=== PATIENT | female | born 1985 | race Hispanic/Latino ===

== ENCOUNTER 2022-08-17 16:37 | Emergency (ER) | payer OTHER ==
[~2022-08-17] VITALS: Ht 154.9 cm; Wt 79.7 kg
[2022-08-17 16:38] VITALS: BP 155/84
[2022-08-17] MEDS ORDERED: LISI10TA22 PO (16:50)
[2022-08-17 19:17] LABS: HEMATOCRIT 43.5 % (36.0-47.0); HEMOGLOBIN 14.7 g/dl (12.0-15.5); MEAN CORPUSCULAR HEMOGLOBIN 30.6 pg (27.0-33.0); MEAN CORPUSCULAR HGB CONC 33.8 g/dl (32.0-36.5); MEAN CORPUSCULAR VOLUME 90.4 fl (80.0-96.0); PLATELET COUNT, AUTOMATED 220 10^3/uL (150-450); RED BLOOD COUNT 4.81 10^6/uL (4.00-5.40); WHITE BLOOD COUNT 7.3 10^3/uL (4.0-10.0)
[2022-08-17 19:31] LABS: ERYTHROCYTE SEDIMENTATION RATE 23 mm/hr (0-20)
[2022-08-17] MEDS ORDERED: ISOVUE-370 76% 100ML VIAL As Ordered ONE (19:44)
[2022-08-17 19:47] LABS: BLOOD UREA NITROGEN 10 MG/DL (9-23); CALCIUM LEVEL 9.1 MG/DL (8.5-10.1); CARBON DIOXIDE LEVEL 25 MMOL/L (20-31); CHLORIDE LEVEL 106 MMOL/L (98-107); GLOMERULAR FILTRATION RATE > 60.0 (>60); GLUCOSE, FASTING 88 MG/DL (60-100); POTASSIUM SERUM 4.1 MMOL/L (3.5-5.1); SODIUM LEVEL 140 MMOL/L (136-145)
[2022-08-17 19:53] LABS: C REACTIVE PROTEIN QUANTITATIV < 0.40 MG/DL (<1.0)
[2022-08-17] MEDS ORDERED: PRED20TA PO (21:54)
== END 2022-08-17 22:01 | disposition home or self-care (01) ==
LOC: M ED 16:37
DX: R22.0 Localized swelling, mass and lump, head (principal); I10 Essential (primary) hypertension; Z79.811 Long term (current) use of aromatase inhibitors; Z79.52 Long term (current) use of systemic steroids
CPT/HCPCS: 36415; 70487; 80048; 84702; 85027; 85652; 86140; 99284; Q9967

== ENCOUNTER 2022-11-16 18:54 | Emergency (ER) | payer OTHER ==
[~2022-11-16] VITALS: Ht 154.9 cm; Wt 80.4 kg
[~2022-11-16 18:54] MED LIST: LISI10TA22 PO; PRED20TA PO
[2022-11-16 20:05] LABS: BASO % 0.4 % (0.0-1.0); EOS # 0.1 10^3/uL (0.0-0.5); EOS % 1.2 % (0.0-3.0); HEMATOCRIT 42.2 % (36.0-47.0); LYMPH # 1.7 10^3/uL (1.5-5.0); LYMPH % 23.3 % (24.0-44.0); MEAN CORPUSCULAR HEMOGLOBIN 29.7 pg (27.0-33.0); MEAN CORPUSCULAR HGB CONC 33.2 g/dl (32.0-36.5); MEAN CORPUSCULAR VOLUME 89.6 fl (80.0-96.0); MONO # 0.6 10^3/uL (0.0-0.8); MONO % 8.5 % (2.0-8.0); NEUTROPHILS # 4.9 10^3/uL (1.5-8.5); NEUTROPHILS % 66.3 % (36.0-66.0); PLATELET COUNT, AUTOMATED 254 10^3/uL (150-450); RED BLOOD COUNT 4.71 10^6/uL (4.00-5.40); WHITE BLOOD COUNT 7.4 10^3/uL (4.0-10.0)
[2022-11-16 20:30] LABS: BLOOD UREA NITROGEN 8 MG/DL (9-23); CALCIUM LEVEL 9.4 MG/DL (8.5-10.1); CARBON DIOXIDE LEVEL 26 MMOL/L (20-31); CHLORIDE LEVEL 106 MMOL/L (98-107); CREATININE FOR GFR 0.69 MG/DL (0.55-1.30); GLOMERULAR FILTRATION RATE > 60.0 (>60); GLUCOSE, FASTING 92 MG/DL (60-100); POTASSIUM SERUM 4.1 MMOL/L (3.5-5.1); SODIUM LEVEL 140 MMOL/L (136-145)
[2022-11-16 20:35] LABS: HCG, SERUM QUALITATIVE NEGATIVE (NEGATIVE)
[2022-11-17 03:49] VITALS: BP 158/89; TEMP 98; O2SAT 98
== END 2022-11-17 04:57 | disposition left against medical advice (07) ==
LOC: M ED 18:54
DX: Z53.21 Procedure and treatment not carried out due to patient leaving prior to being seen by health care provider (principal)